=== PATIENT | male | born 1930 | race Caucasian/White ===

== ENCOUNTER 2016-12-08 23:56 | Emergency (ER) | payer MEDICARE, OTHER ==
[2016-12-09] MEDS ORDERED: ONDANSETRON HCL INJ/PF 4 MG/2 ML SDV IV ONE ×2 (00:43→03:07)
[2016-12-09] MEDS ORDERED: LIDOCAINE 2% URO-JET 5 ML KIT MM ONE (00:43)
[2016-12-09] MEDS ORDERED: NORMAL SALINE 1000 ML 1,000 ML IV ONE (03:07)
--- NOTE | 2016-12-09 03:11 | ER Document Report ---
ED General - General Chief Complaint: Nausea/Vomiting Stated Complaint: NAUSEA,VOMITING Time seen by provider: 03:00 Notes: Patient is an 86-year-old male that comes emergency department for chief complaint of vomiting, loss of appetite, and feeling weak. Started today. Grandson states he was so weak he had to be carried to the car. No fevers noted , normal bowel movement with no blood in it, patient has only vomited once but has not eaten or drank all day per family. Patient is on oral chemotherapy for prostate cancer, also on prednisone. Patient has also had a splenectomy. Patient has been exposed to multiple sick family members with vomiting symptoms per family members. Patient has not had the flu vaccine. TRAVEL OUTSIDE OF THE [place] IN LAST 30 DAYS: No - Related Data Allergies/Adverse Reactions: No Known Allergies Allergy (Unverified 07/03/15 19:46) Past Medical History - General Information source: Patient, Relative - Social History Smoking Status: Former Smoker Chew tobacco use (# tins/day): No Frequency of alcohol use: Rare Drug Abuse: None Lives with: Family Family History: Reviewed & Not Pertinent Patient has suicidal ideation: No Patient has homicidal ideation: No Pulmonary Medical History: Reports: Hx COPD Renal/ Medical History: Denies: Hx Peritoneal Dialysis Malignancy Medical History: Reports Hx Prostate Cancer - currently on pill chemo Past Surgical History: Reports: Hx Orthopedic Surgery - KNEE - Immunizations Hx Diphtheria, Pertussis, Tetanus Vaccination: No Review of Systems - Review of Systems Constitutional: See HPI EENT: No symptoms reported Cardiovascular: No symptoms reported Respiratory: No symptoms reported Gastrointestinal: See HPI Genitourinary: No symptoms reported Male Genitourinary: No symptoms reported Musculoskeletal: No symptoms reported Skin: No symptoms reported Hematologic/Lymphatic: No symptoms reported Neurological/Psychological: No symptoms reported Physical Exam - Vital signs Vitals: Temp Pulse Resp BP Pulse Ox 98.3 F 124 H 18 104/63 93 12/09/16 00:03 12/09/16 00:03 12/09/16 00:03 12/09/16 00:03 12/09/16 00:03 Interpretation: Normal - General General appearance: Other - Patient appears tired, eyes are sunken, patient is mumbling responses In distress: None - HEENT Head: Normocephalic, Atraumatic Eyes: Normal Conjunctiva: Normal Extraocular movements intact: Yes Eyelashes: Normal Pupils: PERRL Sinus: Normal Nasal: Normal Mouth/Lips: Normal Mucous membranes: Dry Pharynx: Normal Neck: Normal - Respiratory Respiratory status: No respiratory distress. No: Labored Chest status: Nontender Breath sounds: Decreased air movement. No: Nonproductive cough, Stridor, Wheezing Chest palpation: Normal - Cardiovascular Rhythm: Regular, Tachycardia Heart sounds: Normal auscultation, S1 appreciated, S2 appreciated Murmur: No - Abdominal Inspection: Normal Distension: No distension Bowel sounds: Normal Tenderness: Nontender. No: Tender, Guarding Organomegaly: No organomegaly - Back Back: Normal, Nontender - Extremities General upper extremity: Normal inspection, Nontender, Normal color, Normal ROM , Normal temperature General lower extremity: Normal inspection, Nontender, Normal color, Normal ROM , Normal temperature, Normal weight bearing. No: Orlin's sign - Neurological Neuro grossly intact: Yes Cognition: Normal Orientation: AAOx4 [place] Coma Scale Eye Opening: Spontaneous [place] Coma Scale Verbal: Oriented [place] Coma Scale Motor: Obeys Commands [place] Coma Scale Total: 15 Speech: Normal Motor strength normal: LUE, RUE, LLE, RLE Sensory: Normal - Skin Skin Temperature: Warm Skin Moisture: Dry Skin Color: Normal Course - Re-evaluation Re-evalutation: Patient initially very tired, mumbling, tachycardic, appears generally unwell. Abdomen is not tender to examination. Patient placed on monitor, provided with Zofran and IV fluids, workup obtained. CBC shows mild leukocytosis with no bandemia, no elevation of neutrophils. Chemistries nonspecific, cardiac enzymes negative, EKG with no changes from prior. Urine shows some casts. On reexamination patient had received IV fluids, tachycardia resolved, patient is sitting up, smiling, asking for water. Patient denies any current symptoms. Patient's coloration has improved, his alertness has improved. Patient reevaluated again, continued to drink water, continues to state he feels good, requesting to go home, family is also requesting to go home. Acute abdominal series shows no obstruction, no evidence for pneumonia, no concerning acute abnormalities. Patient is afebrile, workup is nonspecific, patient has had multiple sick contacts at home, as a result patient will be discharged home with recommended close follow-up and strict return precautions. Patient and relatives state understanding and agreement. - Vital Signs Vital signs: Temp Pulse Resp BP Pulse Ox 98.9 F 124 H 19 107/52 L 91 L 12/09/16 06:00 12/09/16 00:03 12/09/16 05:00 12/09/16 05:00 12/09/16 05:00 - Laboratory Result Diagrams: 12/09/16 04:00 12/09/16 04:00 Laboratory results interpreted by me: 12/09/16 12/09/16 12/09/16 04:00 04:00 04:40 WBC 11.5 H RDW 14.4 H Monocytes % 18.5 H Absolute Monocytes 2.1 H Sodium 133.4 L Chloride 94 L BUN 21 H Creatine Kinase 565 H Urine Protein 30 H Urine Blood SMALL H Discharge - Discharge Clinical Impression: Dehydration Nausea & vomiting Qualifiers: Vomiting type: unspecified Vomiting Intractability: non-intractable Qualified Code(s): R11.2 - Nausea with vomiting, unspecified Condition: Stable Disposition: HOME, SELF-CARE Additional Instructions: X-rays and workup did not indicate any acute abnormality. Examination is suggestive of a viral syndrome although other possibilities of exist. Continue rehydration, rest, take Zofran for nausea, follow-up closely with your primary care provider. Return to the emergency department for any concerning worsening symptoms including abdominal pain, uncontrolled vomiting, blood in the vomit or stools, fever, or any other concerning symptoms. Prescriptions: Ondansetron [Zofran Odt 4 mg Tablet] 1 - 2 tab PO Q4H PRN #20 tab.rapdis PRN Reason: For Nausea/Vomiting
[2016-12-09 04:23] LABS: ABSOLUTE BASOPHILS # (AUTO) 0.1 10^3/uL (0.0-0.2); ABSOLUTE LYMPHOCYTES (AUTO) 2.5 10^3/uL (0.5-4.7); ABSOLUTE MONOCYTES (AUTO) 2.1 10^3/uL (0.1-1.4); ABSOLUTE NEUT (AUTO) 6.8 10^3/uL (1.7-8.2); BASOPHILS % (AUTO) 0.6 % (0-2); EOSINOPHILS % (AUTO) 0.4 % (0-6); HEMATOCRIT 44.4 % (37.9-51.0); HEMOGLOBIN 15.1 g/dL (13.5-17.0); HGB HCT DIFFERENCE 0.9; LYMPHOCYTES % (AUTO) 21.5 % (13-45); MEAN CORPUSCULAR HEMOGLOBIN 29.9 pg (27.0-33.4); MEAN CORPUSCULAR HGB CONC 33.9 g/dL (32.0-36.0); MEAN CORPUSCULAR VOLUME 88 fl (80-97); MONOCYTES % (AUTO) 18.5 % (3-13); RED BLOOD COUNT 5.05 10^6/uL (4.35-5.55); RED CELL DISTRIBUTION WIDTH 14.4 % (11.5-14.0); WHITE BLOOD COUNT 11.5 10^3/uL (4.0-10.5)
[2016-12-09 04:38] LABS: ALANINE AMINOTRANSFERASE 24 U/L (21-72); ALBUMIN 4.4 g/dL (3.5-5.0); ALKALINE PHOSPHATASE 90 U/L (38-126); ANION GAP 12 (5-19); ASPARTATE AMINO TRANSFERASE 27 U/L (17-59); BILIRUBIN,TOTAL 1.1 mg/dL (0.2-1.3); BLOOD UREA NITROGEN 21 mg/dL (7-20); CARBON DIOXIDE 27 mmol/L (22-30); CHLORIDE 94 mmol/L (98-107); CREATINE KINASE 565 U/L (55-170); GLUCOSE 91 mg/dL (75-110); POTASSIUM 3.7 mmol/L (3.6-5.0); SODIUM 133.4 mmol/L (137-145); TOTAL PROTEIN 7.4 g/dL (6.3-8.2)
[2016-12-09 04:50] LABS: CREATINE KINASE MB 0.54 ng/mL (<4.55)
[2016-12-09 04:51] LABS: TROPONIN I < 0.012 ng/mL
[2016-12-09 05:28] LABS: APPEARANCE,URINE SLIGHTLY-CLOUDY; BILIRUBIN,URINE NEGATIVE (NEGATIVE); GLUCOSE, URINE NEGATIVE (NEGATIVE); KETONES,URINE NEGATIVE (NEGATIVE); LEUKOCYTE ESTERASE,URINE NEGATIVE (NEGATIVE); NITRITE,URINE NEGATIVE (NEGATIVE); PROTEIN,URINE 30 mg/dL (NEGATIVE); URINE SPECIFIC GRAVITY 1.016; UROBILINOGEN,URINE NEGATIVE mg/dL (<2.0)
[2016-12-09] MEDS ORDERED: NORMAL SALINE 1000 ML 500 ML IV ONE (05:47)
[2016-12-09] MEDS ORDERED: ONDANSETRON ODT 4 MG TAB (6 TAB/DSPK) PO PRN (07:10)
[2016-12-09 07:37] VITALS: BP 112/56
--- NOTE | 2016-12-09 18:09 | EKG REPORT ---
SEVERITY:- BORDERLINE ECG - SINUS RHYTHM PROBABLE LEFT ATRIAL ABNORMALITY MARKEDLY POSTERIOR QRS AXIS LOW VOLTAGE IN FRONTAL LEADS : Confirmed by: Radha Cloey MD 09-Dec-2016 18:07:15
== END 2016-12-09 07:36 | disposition home or self-care (01) ==
LOC: ER 23:56
DX: E86.0 Dehydration (principal); R11.2 Nausea with vomiting, unspecified; R53.1 Weakness; C61 Malignant neoplasm of prostate; Z79.899 Other long term (current) drug therapy; J44.9 Chronic obstructive pulmonary disease, unspecified
CPT/HCPCS: 93005; 99284; 96361; 51701; 96374; 36415; 82553; 82550; 85025; 80053; 81001; 84484; 74022; 93010; J2405; J7030; A9270; J3490

== ENCOUNTER 2017-01-26 11:42 | Inpatient (IN) | payer MEDICARE, OTHER ==
[2017-01-26] MEDS ORDERED: TETANUS/DIPHTHERIA TOX-ADULT 0.5 ML SYR (>=7YO) IM ONE (12:14)
[2017-01-26] MEDS ORDERED: CEFAZOLIN 2 GM/D5W RTU 50 ML IV SCH (12:15)
[2017-01-26 12:17] LABS: ABSOLUTE BASOPHILS # (AUTO) 0.2 10^3/uL (0.0-0.2); ABSOLUTE LYMPHOCYTES (AUTO) 2.8 10^3/uL (0.5-4.7); ABSOLUTE MONOCYTES (AUTO) 3.4 10^3/uL (0.1-1.4); ABSOLUTE NEUT (AUTO) 11.2 10^3/uL (1.7-8.2); BASOPHILS % (AUTO) 1.2 % (0-2); EOSINOPHILS % (AUTO) 0.1 % (0-6); HEMATOCRIT 42.7 % (37.9-51.0); HEMOGLOBIN 14.6 g/dL (13.5-17.0); HGB HCT DIFFERENCE 1.1; LYMPHOCYTES % (AUTO) 15.8 % (13-45); MEAN CORPUSCULAR HEMOGLOBIN 29.6 pg (27.0-33.4); MEAN CORPUSCULAR HGB CONC 34.3 g/dL (32.0-36.0); MEAN CORPUSCULAR VOLUME 87 fl (80-97); MONOCYTES % (AUTO) 19.5 % (3-13); RED BLOOD COUNT 4.94 10^6/uL (4.35-5.55); RED CELL DISTRIBUTION WIDTH 15.1 % (11.5-14.0); SEGMENTED NEUTROPHILS % (AUTO) 63.4 % (42-78); WHITE BLOOD COUNT 17.7 10^3/uL (4.0-10.5)
[2017-01-26 12:20] LABS: PARTIAL THROMBOPLASTIN TIME 26.5 SEC (23.5-35.8)
--- NOTE | 2017-01-26 12:24 | ER Document Report ---
ED Neuro Symptoms/Deficit - General Mode of Arrival: Medic Information source: Relative TRAVEL OUTSIDE OF THE [place] IN LAST 30 DAYS: No - HPI Duration: Continues in ED Severity: Severe Recently seen / treated by doctor: Yes <WESTLEY PRIETO - Last Filed: 01/26/17 12:27> <AMAN DOCKERY - Last Filed: 01/26/17 14:32> - General Chief Complaint: S/S of Possible Stroke Stated Complaint: FALL/ALTERED Notes: Patient is an 86-year-old male that presents to the emergency department today for complaints of stroke-like symptoms which began at some today point between 0730 and arrival here. The patient lives with his son. Son at bedside states that this morning when he left for work at 0730 the patient was seemingly normal. Son states he returned home around 1030 to 1045 today and found the patient lying on the ground, unable to get up, and confused. Grandson at bedside also states the patient was slumped to his left and would not follow commands. Family states that the patient was seen in this facility approximately one month ago after feeling weak, confused, and delirious and he was found to be dehydrated. Family states the patient responded to IV fluids and was released. Family deny the patient complaining of any nausea, vomiting, diarrhea, fevers, chest pain, or any weakness prior to this episode. (WESTLEY PRIETO) - Related Data Allergies/Adverse Reactions: No Known Allergies Allergy (Unverified 07/03/15 19:46) Past Medical History - General Information source: Patient - Social History Smoking Status: Current Every Day Smoker Cigarette use (# per day): Yes Frequency of alcohol use: Rare Drug Abuse: None Lives with: Family Family History: Reviewed & Not Pertinent Patient has suicidal ideation: No Patient has homicidal ideation: No - Past Medical History Cardiac Medical History: Reports: Hx Hypercholesterolemia Pulmonary Medical History: Reports: Hx COPD Endocrine Medical History: Reports: Hx Diabetes Mellitus Type 2 Malignancy Medical History: Reports Hx Prostate Cancer - currently on pill chemo Past Surgical History: Reports: Hx Orthopedic Surgery - left tib/fib hardware - Immunizations Hx Diphtheria, Pertussis, Tetanus Vaccination: No <WESTLEY PRIETO - Last Filed: 01/26/17 12:27> Review of Systems - Review of Systems -: Yes ROS unobtainable due to patient's medical condition - confused <WESTLEY PRIETO - Last Filed: 01/26/17 12:27> Physical Exam <WESTLEY PRIETO - Last Filed: 01/26/17 12:27> <AMAN DOCKERY - Last Filed: 01/26/17 14:32> - Vital signs Vitals: Resp 23 H 01/26/17 11:56 - Notes Notes: Physical Exam: General: Confused HEENT: Normocephalic. Atraumatic. PERRL. Extraocular movements intact. Oropharynx clear. Neck: Supple. Non-tender. Respiratory: No respiratory distress. Clear and equal breath sounds bilaterally. Cardiovascular: Regular rate and rhythm. Abdominal: No distension. Normal Bowel Sounds. Back: Non-tender. No deformity or step off. Extremities Upper extremities: Skin tear to left anterior forearm Lower extremities: Redness and slight swelling over left shoulder. Area over left lateral proximal tib/fib where subcutaneous tissue is exposed, possible bone protrusion. Neurological: Not following commands, confused. Nonsensical sentences. Left upper extremity and left lower extremity weakness. Unable to hold left arm up against gravity. Normal pedal reflexes bilaterally. Able to wiggle toes bilaterally. No slurred speech. No obvious visual disturbances. No obvious facial droop. Psychological: unable to assess Skin: multiple skin tears, see extremity exam. (IDAWESTLEY IZAGUIRRE) Course - Laboratory Result Diagrams: 01/26/17 12:05 01/26/17 12:05 <WESTLEY PRIETO - Last Filed: 01/26/17 12:27> - Laboratory Result Diagrams: 01/26/17 12:05 01/26/17 12:05 <AMAN DOCKERY - Last Filed: 01/26/17 14:32> - Re-evaluation Re-evalutation: 01/26/17 14:23 Patient presents with confusion and left-sided weakness after being found on the floor by his son about an hour prior to arrival. The patient reportedly was last seen normal around 7:30 this morning. The patient reportedly had an episode of confusion about a month ago and was diagnosed with dehydration and after a couple of bags of IV fluids he reportedly returned to normal. However at that time he had no weakness. On exam, patient is alert but very confused and nonsensical sentences. The patient has weakness in the left upper and left lower extremity. He is unable to follow commands. He has skin tears and a laceration in the left lateral leg. He has tenderness to palpation of the proximal fibula. Medical decision making: Patient with likely acute stroke he is outside of the window for thrombolytics and given the obvious left-sided trauma I would be concerned for increased risk of bleed. The patient does appear to be less confused after some fluids here in the emergency department. He is answering questions more appropriately and now following commands. Patient admitted to the [facility] by Dr. Haney, hospitalist. I will need to suture repair the laceration in the left lower leg prior to him going up to her room. 01/26/17 14:31 (AMAN DOCKERY) - Vital Signs Vital signs: Temp Pulse Resp BP Pulse Ox 122 H 15 125/76 96 01/26/17 12:15 01/26/17 14:01 01/26/17 14:01 01/26/17 14:01 - Laboratory Laboratory results interpreted by me: 01/26/17 01/26/17 01/26/17 12:05 12:05 12:05 WBC 17.7 H RDW 15.1 H Monocytes % 19.5 H Absolute Neutrophils 11.2 H Absolute Monocytes 3.4 H Sodium 136.7 L Chloride 95 L Glucose 116 H Calcium 10.3 H Alkaline Phosphatase 151 H Creatine Kinase 825 H CK-MB (CK-2) 5.30 H - EKG Interpretation by Me Additional EKG results interpreted by me: 01/26/17 14:23 Heart rate 117, sinus tachycardia, right axis deviation, no ST elevations or depressions, as interpreted by me. No old for comparison. (AMAN DOCKERY) Discharge <WESTLEY PRIETO - Last Filed: 01/26/17 12:27> - Discharge Admitting Provider: Hospitalist Unit Admitted: [facility] <AMAN DOCKERY - Last Filed: 01/26/17 14:32> - Discharge Clinical Impression: Confusion, Left-sided weakness, Multiple lacerations Condition: Fair Disposition: ADMITTED INPATIENT Scribe Attestation: 01/26/17 13:27 I personally performed the services described in the documentation, reviewed and edited the documentation which was dictated to the scribe in my presence, and it accurately records my words and actions. (JEANA DOCKERY Scribe Documentation - Scribe Written by Scribe:: Twyla Holland, 01/26/2017 1254 acting as scribe for :: Mcqueen <WESTLEY PRIETO - Last Filed: 01/26/17 12:27>
[2017-01-26 12:32] LABS: ALANINE AMINOTRANSFERASE 27 U/L (21-72); ALBUMIN 4.6 g/dL (3.5-5.0); ALKALINE PHOSPHATASE 151 U/L (38-126); ANION GAP 16 (5-19); ASPARTATE AMINO TRANSFERASE 43 U/L (17-59); BILIRUBIN,DIRECT 0.4 mg/dL (0.0-0.4); BILIRUBIN,TOTAL 0.9 mg/dL (0.2-1.3); BLOOD UREA NITROGEN 20 mg/dL (7-20); CALCIUM 10.3 mg/dL (8.4-10.2); CARBON DIOXIDE 26 mmol/L (22-30); CHLORIDE 95 mmol/L (98-107); CREATINE KINASE 825 U/L (55-170); CREATININE RESULT 0.74 mg/dL (0.52-1.25); GLUCOSE 116 mg/dL (75-110); POTASSIUM 4.7 mmol/L (3.6-5.0); SODIUM 136.7 mmol/L (137-145); TOTAL PROTEIN 8.1 g/dL (6.3-8.2)
[2017-01-26 12:44] LABS: CREATINE KINASE MB 5.3 ng/mL (<4.55); TROPONIN I 0.027 ng/mL
[2017-01-26] MEDS ORDERED: LIDOCAINE 1%/EPINEPHRINE INJ 20 ML VIAL INJ ONE (13:14)
[2017-01-26] MEDS ORDERED: DEXTROSE 40% GEL 15 GM TUBE PO PRN ×2 (14:30)
[2017-01-26] MEDS ORDERED: NORMAL SALINE 1000 ML 1,000 ML IV PRN (14:30)
[2017-01-26] MEDS ORDERED: GLUCAGON,HUMAN RECOMB 1 MG INJ SUBCUT PRN (14:30)
[2017-01-26] MEDS ORDERED: DEXTROSE 50%-WATER 25 GM/50 ML DISP.SYRIN IV PRN ×2 (14:30)
[2017-01-26] MEDS ORDERED: ENOXAPARIN SODIUM INJ 40 MG/0.4 ML DISP.SYRIN SUBCUT ONE (15:30)
--- NOTE | 2017-01-26 17:33 | ER Document Report ---
Doctor's Note Notes: 01/26/17 17:30 Procedure: Laceration repair of left proximal lower leg laceration. Wound cleaned with Shur-Clens. Irrigated well. 1% lidocaine with epi used for local anesthesia. Wounds edges are gaping approximately 15 mm x 1 cm square wound. The patient's skin is very thin. 3 edges of this wound have completely denuded skin however the area under the laceration reveals the muscular fascia. The wound was explored no further penetration was identified beyond the subcutaneous tissue. Wound edges were brought together with 5-0 Vicryl absorbable suture. 4 sutures were placed with the first suture being a horizontal mattress and remaining sutures simple sutures. Wound came together well. Dressing applied by nurse to remainder of wound which was a very large 10 cm x 5 cm area of denuded skin extending proximally.
[2017-01-26] MEDS ORDERED: VANCOMYCIN HCL 0 MG in DEXTROSE 5%-WATER 250 ML IV NR (18:00)
--- NOTE | 2017-01-26 18:01 | PDOC H&P ---
History of Present Illness Admission Date/PCP: 01/26/17 14:30 Dr Everett Patient complains of: weakness left side body. Confusion. Status post fall History of Present Illness: THERESA HIGGINS is a 86 year old male with a known history of COPD, anemia, nephrolithiasis, prostatic cancer with metastases Presents to the ED after falling with confusion and left-sided weakness Patient was found on the floor at home He was extremely confused on arrival and then slowly his mentation improved He had left upper extremity left lower extremity weakness that also improved somewhat He was found not to be a candidate for TPA He was febrile in the emergency room with a fever of 102, tachycardia and a blood pressure 100/60 Sepsis workup was initiated; He was treated with IV fluid, broad-spectrum coverage and subsequently admitted [place] [facility] [place] workup was initiated Past Medical History Cardiac Medical History: Reports: Hyperlipidema, Hypertension Pulmonary Medical History: Reports: Chronic Obstructive Pulmonary Disease (COPD) Endocrine Medical History: Reports: Diabetes Mellitus Type 2 Renal/ Medical History: Reports: Nephrolithiasis - Anemia Malignancy Medical History: Reports: Other - Ca of the prostate with metastases Hematology: Reports: Anemia Past Surgical History Past Surgical History: Reports: Orthopedic Surgery - left tib/fib hardware Social History Lives with: Family - Grandson was also his surrogate healthcare Smoking Status: Former Smoker Frequency of Alcohol Use: Occasional Hx Recreational Drug Use: No Drugs: None Hx Prescription Drug Abuse: No - Advance Directive Resuscitation Status: Full Code Surrogate healthcare decision maker:: Grandson Sánchez Family History Family History: Reviewed & Not Pertinent Parental Family History Reviewed: Yes Children Family History Reviewed: Yes Sibling(s) Family History Reviewed.: Yes Medication/Allergy Home Medications: Abiraterone Acetate [Zytiga 250 mg Tablet] 1,000 mg PO DAILY 01/26/17 Atorvastatin Calcium [Lipitor 40 mg Tablet] 40 mg PO QHS 01/26/17 Calcium Carbonate/Vitamin D3 [Calcium 500-Vit D3 200 Tablet] 1 tab PO Q12 Cyproheptadine HCl [Periactin 4 mg Tablet] 4 mg PO Q12 01/26/17 Levothyroxine Sodium [Synthroid 0.025 mg Tablet] 25 mcg PO DAILY 01/26/17 Metformin HCl [Glucophage] 500 mg PO BID 01/26/17 Pantoprazole Sodium [Protonix] 40 mg PO DAILY 01/26/17 Prednisone [Deltasone 5 mg Tablet] 5 mg PO BID 01/26/17 Allergies/Adverse Reactions: No Known Allergies Allergy (Unverified 07/03/15 19:46) Review of Systems ROS unobtainable: Due to mental status Physical Exam Vital Signs: Temp Pulse Resp BP Pulse Ox 102.8 F H 101 H 24 H 125/76 95 01/26/17 17:16 01/26/17 17:16 01/26/17 14:31 01/26/17 14:31 01/26/17 14:31 Intake & Output 01/25/17 01/26/17 01/27/17 00:59 00:59 00:59 Weight 125 kg General appearance: PRESENT: no acute distress, thin, other - Does look chronically ill Head exam: PRESENT: atraumatic, normocephalic Eye exam: PRESENT: conjunctiva pink, EOMI, PERRLA. ABSENT: scleral icterus Neck exam: ABSENT: carotid bruit, JVD, lymphadenopathy, thyromegaly Respiratory exam: PRESENT: clear to auscultation shell. ABSENT: rales, rhonchi, wheezes Cardiovascular exam: PRESENT: RRR, systolic murmur, tachycardia. ABSENT: clicks , gallop, rubs Pulses: PRESENT: normal dorsalis pedis pul Vascular exam: PRESENT: normal capillary refill GI/Abdominal exam: PRESENT: normal bowel sounds, soft. ABSENT: distended, guarding, mass, organolmegaly, rebound, tenderness Rectal exam: PRESENT: deferred Extremities exam: PRESENT: full ROM. ABSENT: calf tenderness, clubbing, pedal edema Neurological exam: PRESENT: awake, other - Weakness left upper left lower extremity Skin exam: PRESENT: other - Abrasions and superficial lacerations left arm and left leg Results Laboratory Results: Labs- All tests 24 hr 01/26/17 01/26/17 01/26/17 11:54 12:05 12:05 WBC 17.7 H RBC 4.94 Hgb 14.6 Hct 42.7 MCV 87 MCH 29.6 MCHC 34.3 RDW 15.1 H Plt Count 438 Seg Neutrophils % 63.4 Lymphocytes % 15.8 Monocytes % 19.5 H Eosinophils % 0.1 Basophils % 1.2 Absolute Neutrophils 11.2 H Absolute Lymphocytes 2.8 Absolute Monocytes 3.4 H Absolute Eosinophils 0.0 Absolute Basophils 0.2 PT 12.0 INR 0.87 APTT 26.5 Sodium Potassium Chloride Carbon Dioxide Anion Gap BUN Creatinine Est GFR ( Amer) Est GFR (Non-Af Amer) Glucose POC Glucose 102 Calcium Total Bilirubin Direct Bilirubin Indirect Bilirubin Neonat Total Bilirubin AST ALT Alkaline Phosphatase Creatine Kinase CK-MB (CK-2) Troponin I Total Protein Albumin 01/26/17 01/26/17 12:05 12:05 WBC RBC Hgb Hct MCV MCH MCHC RDW Plt Count Seg Neutrophils % Lymphocytes % Monocytes % Eosinophils % Basophils % Absolute Neutrophils Absolute Lymphocytes Absolute Monocytes Absolute Eosinophils Absolute Basophils PT INR APTT Sodium 136.7 L Potassium 4.7 Chloride 95 L Carbon Dioxide 26 Anion Gap 16 BUN 20 Creatinine 0.74 Est GFR ( Amer) > 60 Est GFR (Non-Af Amer) > 60 Glucose 116 H POC Glucose Calcium 10.3 H Total Bilirubin 0.9 Direct Bilirubin 0.4 Indirect Bilirubin Not Reportable Neonat Total Bilirubin Not Reportable AST 43 ALT 27 Alkaline Phosphatase 151 H Creatine Kinase 825 H CK-MB (CK-2) 5.30 H Troponin I 0.027 Total Protein 8.1 Albumin 4.6 EKG Comments: SINUS TACHYCARDIA [PLAA] . PROBABLE LEFT ATRIAL ABNORMALITY [RAD] . RIGHT AXIS DEVIATION [IMIQ] . INFERIOR INFARCT, AGE INDETERMINATE [AMI8] . CONSIDER ANTEROSEPTAL INFARCT Impressions: Chest X-Ray 01/26/17 11:46 IMPRESSION: NO ACUTE RADIOGRAPHIC FINDING IN THE CHEST. Head CT 01/26/17 11:46 IMPRESSION: CHRONIC CHANGES OF ATROPHY AND MICROVASCULAR ISCHEMIA. NO ACUTE PROCESS. Forearm X-Ray 01/26/17 11:59 IMPRESSION: NEGATIVE STUDY OF THE LEFT FOREARM. NO RADIOGRAPHIC EVIDENCE OF ACUTE INJURY. Tibia/Fibula X-Ray 01/26/17 11:59 IMPRESSION: NEGATIVE STUDY OF THE LEFT TIBIA AND FIBULA. NO RADIOGRAPHIC EVIDENCE OF ACUTE INJURY. Shoulder X-Ray 01/26/17 12:12 IMPRESSION: NEGATIVE STUDY OF THE LEFT SHOULDER. NO RADIOGRAPHIC EVIDENCE OF ACUTE INJURY. Carotid Doppler Study 01/26/17 14:35 IMPRESSION: NO HEMODYNAMICALLY SIGNIFICANT STENOSIS. Assessment & Plan - Diagnosis (1) Sepsis Qualifiers: Sepsis type: sepsis due to unspecified organism Qualified Code(s): A41.9 - Sepsis, unspecified organism Is this a current diagnosis for this admission?: YesPlan: Source is unclear Chest x-ray is normal We will place a Oliveros catheter sending urine analysis and urine culture Patient does have a history of prostatic CA ; source is likely UTI We will schedule the patient for a plain CT abdomen and pelvis in a.m. to exclude post obstructive nephropathy (2) Urinary incontinence Qualifiers: Urinary Incontinence type: unspecified incontinence Qualified Code(s ): R32 - Unspecified urinary incontinence Is this a current diagnosis for this admission?: YesPlan: Oliveros catheter will be inserted (3) Confusion Is this a current diagnosis for this admission?: YesPlan: Metabolic encephalopathy secondary to sepsis and or CVA Initial CT of the brain was normal (4) Left-sided weakness Is this a current diagnosis for this admission?: YesPlan: Maybe secondary to metabolic encephalopathy and or CVA Reevaluate MEND exams Stroke workup initiated (5) Falls Is this a current diagnosis for this admission?: YesPlan: we will monitor Patient may have had a syncope Fall was not witnessed patient was found on the ground PT evaluation when stable - Time Time Spent: Greater than 70 Minutes - Inpatient Certification Based on my medical assessment, after consideration of the patient's comorbidities, presenting symptoms, or acuity I expect that the services needed warrant INPATIENT care.: Yes I certify that my determination is in accordance with my understanding of Medicare's requirements for reasonable and necessary INPATIENT services [42 CFR 412.3e].: Yes Medical Necessity: Need For IV Fluids, Need For Continuous Telemetry Monitoring , Need for IV Antibiotics
[2017-01-26] MEDS: ACETAMINOPHEN 325 MG TABLET PO PRN (18:46)
[2017-01-26] MEDS ORDERED: PIPERACILLIN SODIUM/TAZOBACTAM 3.375 GM in NORMAL SALINE 100 ML IV ONE (19:00)
[2017-01-26] MEDS: NORMAL SALINE 1000 ML 2,000 ML IV PRN (19:12)
--- NOTE | 2017-01-26 19:56 | EKG REPORT ---
SEVERITY:- ABNORMAL ECG - SINUS TACHYCARDIA PROBABLE LEFT ATRIAL ABNORMALITY RIGHT AXIS DEVIATION INFERIOR INFARCT, AGE INDETERMINATE CONSIDER ANTEROSEPTAL INFARCT : Confirmed by: Jl Cast MD 26-Jan-2017 19:54:46
[2017-01-26] MEDS: ATORVASTATIN CALCIUM 40 MG TABLET PO SCH (23:03)
[2017-01-27] MEDS ORDERED: PIPERACILLIN SODIUM/TAZOBACTAM 3.375 GM in NORMAL SALINE 100 ML IV SCH ×2
[2017-01-27] MEDS: CEFTRIAXONE 2 GM/D5W RTU 50 ML IV SCH ×3 (00:02→21:33)
[2017-01-27] MEDS: VANCOMYCIN HCL 1,500 MG in DEXTROSE 5%-WATER 250 ML IV SCH ×3 (01:11→21:33)
[2017-01-27] MEDS: ACETAMINOPHEN 325 MG TABLET PO PRN (03:09)
[2017-01-27 06:08] LABS: CHOLESTEROL 159.23 mg/dL (0-200); Direct HDL 43 mg/dL (>40); TRIGLYCERIDES 225 mg/dL (<150)
[2017-01-27 06:21] LABS: DIRECT LDL 55 mg/dL (<100)
--- NOTE | 2017-01-27 07:41 | EKG REPORT ---
SEVERITY:- ABNORMAL ECG - SINUS RHYTHM MULTIPLE ATRIAL PREMATURE COMPLEXES RIGHT AXIS DEVIATION INFERIOR INFARCT, AGE INDETERMINATE : Confirmed by: Jl Cast MD 27-Jan-2017 07:39:55
[2017-01-27] MEDS: ENOXAPARIN SODIUM INJ 40 MG/0.4 ML DISP.SYRIN SUBCUT SCH (10:49)
[2017-01-27] MEDS: ASPIRIN 325 MG TABLET, ENT COATED PO SCH (10:50)
--- NOTE | 2017-01-27 10:52 | PDOC PROGRESS REPORT ---
Subjective Progress Note for:: 01/27/17 Subjective:: Patient still looks quite ill His left-sided weakness has improved He is still confused at times but recognizes his family He has no headache no photophobia no neck pain Fever has resolved Lactic acid yesterday was normal Patient did have residual urine close to 300 mL; the Oliveros catheter will be inserted if he does not void in the next 30 minutes Physical Exam Vital Signs: Temp Pulse Resp BP Pulse Ox 98.2 F 92 16 111/54 L 98 01/27/17 07:51 01/27/17 07:51 01/27/17 07:51 01/27/17 07:51 01/27/17 07:51 Intake & Output 01/26/17 01/27/17 01/28/17 00:59 00:59 00:59 Intake Total 825 Balance 825 Weight 125 kg 57.4 kg General appearance: PRESENT: no acute distress, thin - Looks acute on chronically ill Is very thin, other Head exam: PRESENT: atraumatic, normocephalic Eye exam: PRESENT: conjunctiva pink, EOMI, PERRLA. ABSENT: scleral icterus Mouth exam: PRESENT: dry mucosa, tongue midline Neck exam: ABSENT: carotid bruit, JVD, lymphadenopathy, thyromegaly Respiratory exam: PRESENT: clear to auscultation shell. ABSENT: rales, rhonchi, wheezes Cardiovascular exam: PRESENT: RRR. ABSENT: diastolic murmur, rubs, systolic murmur Vascular exam: PRESENT: normal capillary refill GI/Abdominal exam: PRESENT: normal bowel sounds, soft. ABSENT: distended, guarding, mass, organolmegaly, rebound, tenderness Neurological exam: PRESENT: CN II-XII grossly intact - Patient is moving all 4 extremities No facial paralysis Results Laboratory Results: 01/26/17 01/27/17 19:50 05:40 Lactic Acid 1.2 Triglycerides 225 H Cholesterol 159.23 LDL Cholesterol Direct 55 VLDL Cholesterol 45.0 H HDL Cholesterol 43 01/26/17 01/27/17 18:00 00:18 Troponin I 0.045 0.044 Impressions: Chest X-Ray 01/26/17 11:46 IMPRESSION: NO ACUTE RADIOGRAPHIC FINDING IN THE CHEST. Head CT 01/26/17 11:46 IMPRESSION: CHRONIC CHANGES OF ATROPHY AND MICROVASCULAR ISCHEMIA. NO ACUTE PROCESS. Forearm X-Ray 01/26/17 11:59 IMPRESSION: NEGATIVE STUDY OF THE LEFT FOREARM. NO RADIOGRAPHIC EVIDENCE OF ACUTE INJURY. Tibia/Fibula X-Ray 01/26/17 11:59 IMPRESSION: NEGATIVE STUDY OF THE LEFT TIBIA AND FIBULA. NO RADIOGRAPHIC EVIDENCE OF ACUTE INJURY. Shoulder X-Ray 01/26/17 12:12 IMPRESSION: NEGATIVE STUDY OF THE LEFT SHOULDER. NO RADIOGRAPHIC EVIDENCE OF ACUTE INJURY. Head MRI 01/26/17 14:30 IMPRESSION: ATROPHY AND CHRONIC MICRO-VASCULAR ISCHEMIC CHANGES. OTHERWISE NORMAL MRI OF THE BRAIN WITHOUT INTRAVENOUS GADOLINIUM CONTRAST. Carotid Doppler Study 01/26/17 14:35 IMPRESSION: NO HEMODYNAMICALLY SIGNIFICANT STENOSIS. Assessment & Plan - Diagnosis (1) Sepsis Qualifiers: Sepsis type: sepsis due to unspecified organism Qualified Code(s): A41.9 - Sepsis, unspecified organism Is this a current diagnosis for this admission?: YesPlan: Early sepsis Lactic acid was normal the patient was febrile with altered mental status Fever has resolved Source of the sepsis is unclear It is unlikely that the patient has meningitis or meningoencephalitis as his mentation has improved the left sided hemiparesis has improved Patient couldn't stand with physical therapy we will continue vancomycin and ceftriaxone at this time Source of the sepsis is more likely to be urinary tract infection; patient appears to be in urinary retention; he does have a history of prostatic cancer We will continue the present antibiotic management Patient appears somewhat dehydrated clinically We will increase IV fluids and give him a fluid bolus (2) Urinary incontinence Qualifiers: Urinary Incontinence type: unspecified incontinence Qualified Code(s ): R32 - Unspecified urinary incontinence Is this a current diagnosis for this admission?: Yes (3) Confusion Is this a current diagnosis for this admission?: Yes (4) Left-sided weakness Is this a current diagnosis for this admission?: YesPlan: Resolved (5) Falls Is this a current diagnosis for this admission?: Yes (6) History of prostate cancer Is this a current diagnosis for this admission?: YesPlan: We will hold chemotherapy at this time (7) TIA (transient ischemic attack) Is this a current diagnosis for this admission?: YesPlan: Likely The patient has a normal carotid ultrasound; negative initial CT of the head Echocardiogram was performed - Time Time Spent with patient: We will continue the present management Hydrate Reevaluate Time Spent with patient: 35 or more minutes
[2017-01-27 11:07] LABS: ABSOLUTE BASOPHILS # (AUTO) 0.1 10^3/uL (0.0-0.2); ABSOLUTE LYMPHOCYTES (AUTO) 2.1 10^3/uL (0.5-4.7); ABSOLUTE MONOCYTES (AUTO) 1.8 10^3/uL (0.1-1.4); ABSOLUTE NEUT (AUTO) 9.4 10^3/uL (1.7-8.2); BASOPHILS % (AUTO) 0.9 % (0-2); EOSINOPHILS % (AUTO) 0.3 % (0-6); HEMATOCRIT 40.7 % (37.9-51.0); HEMOGLOBIN 14.1 g/dL (13.5-17.0); HGB HCT DIFFERENCE 1.6; LYMPHOCYTES % (AUTO) 15.6 % (13-45); MEAN CORPUSCULAR HEMOGLOBIN 29.9 pg (27.0-33.4); MEAN CORPUSCULAR HGB CONC 34.6 g/dL (32.0-36.0); MEAN CORPUSCULAR VOLUME 86 fl (80-97); MONOCYTES % (AUTO) 13.2 % (3-13); RED BLOOD COUNT 4.72 10^6/uL (4.35-5.55); WHITE BLOOD COUNT 13.5 10^3/uL (4.0-10.5)
[2017-01-27 11:17] LABS: ANION GAP 12 (5-19); BLOOD UREA NITROGEN 14 mg/dL (7-20); CALCIUM 8.8 mg/dL (8.4-10.2); CARBON DIOXIDE 24 mmol/L (22-30); CHLORIDE 99 mmol/L (98-107); CREATININE RESULT 0.62 mg/dL (0.52-1.25); GLUCOSE 93 mg/dL (75-110)
[2017-01-27 11:20] LABS: POTASSIUM 3.7 mmol/L (3.6-5.0)
[2017-01-27] MEDS ORDERED: PREDNISONE 10 MG TABLET PO ONE (11:30)
[2017-01-27 12:56] LABS: APPEARANCE,URINE CLOUDY; BILIRUBIN,URINE NEGATIVE (NEGATIVE); GLUCOSE, URINE NEGATIVE (NEGATIVE); KETONES,URINE TRACE mg/dL (NEGATIVE); LEUKOCYTE ESTERASE,URINE NEGATIVE (NEGATIVE); NITRITE,URINE NEGATIVE (NEGATIVE); PROTEIN,URINE 30 mg/dL (NEGATIVE); URINE SPECIFIC GRAVITY 1.017; UROBILINOGEN,URINE NEGATIVE mg/dL (<2.0)
--- NOTE | 2017-01-27 15:57 | XCELERA REPORT ---
[address] [address] Transthoracic Echocardiogram Report Name: THERESA HIGGINS Age: 86 yrs Gender: Male : 1930 Patient Status: Inpatient Patient Location: \S\09\S\A Study Date: 01/26/2017 03:40 PM Height: 65 in Weight: 140 lb BSA: 1.7 m2 Procedure: A two-dimensional transthoracic echocardiogram with color flow and Doppler was performed. Study Quality: Technically suboptimal. Reason For Study: CVA History: CVA. Ordering Physician: NITZA COONEY Performed By: Nevin Cordova Interpretation Summary There is no obvious cardiac source of embolus noted on this transthoracic echocardiogram. Follow-up with a ARPITA is suggested if cardiac source is still suspected. The left ventricle is normal in size. There is normal left ventricular wall thickness. LV EF is > than 60% Left ventricular systolic function is normal. Doppler measurements suggest impaired left ventricular relaxation, which is associated with grade I/IV or mild diastolic dysfunction The left ventricular wall motion is normal. There is no thrombus. The right ventricle is not well visualized secondary to technical limitations The left atrial size is normal. There is no evidence of mitral valve prolapse. There is no mitral valve stenosis. There is a trace amount of mitral regurgitation The aortic valve is trileaflet. There is no aortic valvular vegetation. There is mild to moderate aortic stenosis There is a peak gradient of 41 mm of Hg. There is no LVOT obstruction. No aortic regurgitation is present. There is no tricuspid stenosis. There is a trace to mild amount of tricuspid regurgitation There is mild pulmonary hypertension by echo RVSP is 322 to 37 mm of Hg , with RA mean of 5 to 10. There is no pericardial effusion. There is no obvious cardiac source of embolus noted on this transthoracic echocardiogram. Follow-up with a ARPITA is suggested if cardiac source is still suspected MMode/2D Measurements \T\ Calculations RVDd: 3.2 cm LVIDd: 4.6 cm FS: 33.1 % Ao root diam: 3.0 cm IVSd: 0.81 cm LVIDs: 3.1 cm EDV(Teich): 98.6 ml LVPWd: 0.67 cmESV(Teich): 37.8 ml Ao root area: 6.8 cm2 EF(Teich): 61.7 % LA dimension: 3.2 cm LVOT diam: 2.1 cm LVOT area: 3.4 cm2 Doppler Measurements \T\ Calculations MV E max jeni: MV P1/2t max jeni: Ao V2 max: LV V1 max P.3 cm/sec 56.8 cm/sec 320.3 cm/sec 3.1 mmHg MV A max jeni: MV P1/2t: 63.0 msec Ao max PG: LV V1 mean P.0 cm/sec MVA(P1/2t): 3.5 cm2 41.0 mmHg 1.7 mmHg MV E/A: 0.49 MV dec slope: Ao V2 mean: LV V1 max: 264.0 cm/sec2 224.8 cm/sec 87.9 cm/sec Ao mean PG: LV V1 mean: 22.9 mmHg 61.0 cm/sec Ao V2 VTI: 49.9 cmLV V1 VTI: KYMBERLY(I,D): 0.77 cm211.4 cm KYMBERLY(V,D): 0.92 cm2 SV(LVOT): 38.5 ml PA V2 max: TR max jeni: 106.6 cm/sec 260.6 cm/sec PA max P.5 mmHg TR max P.2 mmHg Left Ventricle The left ventricle is normal in size. There is normal left ventricular wall thickness. LV EF is > than 60%. Left ventricular systolic function is normal. Doppler measurements suggest impaired left ventricular relaxation, which is associated with grade I/IV or mild diastolic dysfunction. The left ventricular wall motion is normal. There is no thrombus. Right Ventricle The right ventricle is not well visualized secondary to technical limitations. Atria The right atrium is normal. The left atrial size is normal. Mitral Valve There is mild to moderate mitral annular calcification. There is no evidence of mitral valve prolapse. There is no vegetation seen on the mitral valve. There is no mitral valve stenosis. There is a trace amount of mitral regurgitation. Aortic Valve The aortic valve is trileaflet. There is no aortic valvular vegetation. There is mild to moderate aortic stenosis. There is a peak gradient of 41 mm of Hg. There is no LVOT obstruction. No aortic regurgitation is present. Tricuspid Valve There is no tricuspid stenosis. There is a trace to mild amount of tricuspid regurgitation. There is mild pulmonary hypertension by echo. RVSP is 322 to 37 mm of Hg , with RA mean of 5 to 10. Pulmonic Valve The pulmonic valve is not well visualized. Great Vessels The aortic root is not well visualized but is probably normal size. Effusions There is no pericardial effusion. : NITZA COONEY > Radha Coley
[2017-01-27] MEDS ORDERED: PREDNISONE 5 MG TABLET PO SCH (18:00)
[2017-01-27] MEDS: PREDNISONE 10 MG TABLET PO SCH (18:25)
[2017-01-27] MEDS: NORMAL SALINE 1000 ML 2,000 ML IV PRN (18:26)
[2017-01-27] MEDS: ATORVASTATIN CALCIUM 40 MG TABLET PO SCH (21:33)
[2017-01-28] MEDS: ENOXAPARIN SODIUM INJ 40 MG/0.4 ML DISP.SYRIN SUBCUT SCH (08:27)
[2017-01-28] MEDS: CEFTRIAXONE 2 GM/D5W RTU 50 ML IV SCH (10:20)
[2017-01-28] MEDS: LEVOTHYROXINE SODIUM 0.025 MG TABLET PO SCH (10:21)
[2017-01-28] MEDS: ASPIRIN 325 MG TABLET, ENT COATED PO SCH (10:21)
[2017-01-28] MEDS: LANSOPRAZOLE 30 MG TAB.RAP.DR PO SCH (10:21)
[2017-01-28] MEDS: PREDNISONE 10 MG TABLET PO SCH ×2 (10:21→17:26)
--- NOTE | 2017-01-28 14:01 | PDOC PROGRESS REPORT ---
Subjective Progress Note for:: 01/28/17 Subjective:: Patient is doing a lot better His mentation has improved He has been waking with physical therapy and ambulates with a walker He is had no fever no chills left-sided hemiplegia has resolved Physical Exam Vital Signs: Temp Pulse Resp BP Pulse Ox 98.1 F 76 17 129/47 H 97 01/28/17 07:21 01/28/17 07:21 01/28/17 07:21 01/28/17 07:21 01/28/17 07:21 Intake & Output 01/27/17 01/28/17 01/29/17 00:59 00:59 00:59 Intake Total 3867 1400 Output Total 1200 200 Balance 2667 1200 Weight 125 kg 57.4 kg 56.1 kg General appearance: PRESENT: no acute distress, other - Still looks chronically ill Head exam: PRESENT: atraumatic, normocephalic Eye exam: PRESENT: conjunctiva pink, EOMI, PERRLA. ABSENT: scleral icterus Neck exam: ABSENT: carotid bruit, JVD, lymphadenopathy, thyromegaly Respiratory exam: PRESENT: clear to auscultation shell. ABSENT: rales, rhonchi, wheezes Cardiovascular exam: PRESENT: RRR. ABSENT: diastolic murmur, rubs, systolic murmur Pulses: PRESENT: normal dorsalis pedis pul GI/Abdominal exam: PRESENT: normal bowel sounds, soft. ABSENT: distended, guarding, mass, organolmegaly, rebound, tenderness Extremities exam: PRESENT: full ROM. ABSENT: calf tenderness, clubbing, pedal edema Neurological exam: PRESENT: awake, CN II-XII grossly intact Skin exam: PRESENT: dry, intact, warm. ABSENT: cyanosis, rash Results Laboratory Results: 01/27/17 10:47 01/28/17 09:56 01/28/17 09:56 Creatinine 0.50 L Est GFR ( Amer) > 60 Est GFR (Non-Af Amer) > 60 01/26/17 01/27/17 18:00 00:18 Troponin I 0.045 0.044 Impressions: Chest X-Ray 01/26/17 11:46 IMPRESSION: NO ACUTE RADIOGRAPHIC FINDING IN THE CHEST. Forearm X-Ray 01/26/17 11:59 IMPRESSION: NEGATIVE STUDY OF THE LEFT FOREARM. NO RADIOGRAPHIC EVIDENCE OF ACUTE INJURY. Tibia/Fibula X-Ray 01/26/17 11:59 IMPRESSION: NEGATIVE STUDY OF THE LEFT TIBIA AND FIBULA. NO RADIOGRAPHIC EVIDENCE OF ACUTE INJURY. Shoulder X-Ray 01/26/17 12:12 IMPRESSION: NEGATIVE STUDY OF THE LEFT SHOULDER. NO RADIOGRAPHIC EVIDENCE OF ACUTE INJURY. Head MRI 01/26/17 14:30 IMPRESSION: ATROPHY AND CHRONIC MICRO-VASCULAR ISCHEMIC CHANGES. OTHERWISE NORMAL MRI OF THE BRAIN WITHOUT INTRAVENOUS GADOLINIUM CONTRAST. Carotid Doppler Study 01/26/17 14:35 IMPRESSION: NO HEMODYNAMICALLY SIGNIFICANT STENOSIS. Renal Ultrasound 01/27/17 10:53 IMPRESSION: NO EVIDENCE OF HYDRONEPHROSIS. CORTICAL CYST IN THE RIGHT KIDNEY. Head CT 01/28/17 08:00 IMPRESSION: Chronic white matter disease. 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 No acute findings Assessment & Plan - Diagnosis (1) Sepsis Qualifiers: Sepsis type: sepsis due to unspecified organism Qualified Code(s): A41.9 - Sepsis, unspecified organism Is this a current diagnosis for this admission?: YesPlan: Likely to be secondary to urinary tract infection has resolved Week we will continue ceftriaxone IV and discharged patient with Keflex by mouth (2) Urinary incontinence Qualifiers: Urinary Incontinence type: unspecified incontinence Qualified Code(s ): R32 - Unspecified urinary incontinence Is this a current diagnosis for this admission?: YesPlan: Patient had a residual of 400 mL of urine yesterday Initiated Flomax We'll discontinue Oliveros catheter in a.m. and half patient attempt to void (3) Confusion Is this a current diagnosis for this admission?: YesPlan: Encephalopathy likely to be secondary to TIA and/or sepsis is resolving (4) Left-sided weakness Is this a current diagnosis for this admission?: YesPlan: Secondary to TIA has resolved (5) Falls Is this a current diagnosis for this admission?: Yes (6) History of prostate cancer Is this a current diagnosis for this admission?: Yes (7) TIA (transient ischemic attack) Qualifiers: Transient cerebral ischemia type: unspecified Qualified Code(s): G45.9 - Transient cerebral ischemic attack, unspecified Is this a current diagnosis for this admission?: YesPlan: MRI was unremarkable and carotid ultrasound did not show significant stenosis (8) Urinary retention Is this a current diagnosis for this admission?: Yes - Time Time Spent with patient: We will discharge patient in a.m. if stable
[2017-01-28] MEDS ORDERED: PREDNISONE 10 MG TABLET PO ONE (14:30)
[2017-01-28] MEDS ORDERED: TAMSULOSIN HCL 0.4 MG CAP.SR.24H PO SCH (18:00)
[2017-01-28] MEDS: ATORVASTATIN CALCIUM 40 MG TABLET PO SCH (21:16)
[2017-01-28] MEDS: NORMAL SALINE 1000 ML 1,000 ML IV PRN (22:01)
[2017-01-29] MEDS ORDERED: POTASSI CL 20 MEQ/50 ML RIDER 20 MEQ/50 ML RTUPB IV ONE (00:48)
[2017-01-29] MEDS: POTASSI CL 20 MEQ/50 ML RIDER 20 MEQ/50 ML RTUPB IV SCH ×2 (00:55→02:52)
[2017-01-29 01:09] LABS: ANION GAP 13 (5-19); BLOOD UREA NITROGEN 16 mg/dL (7-20); CARBON DIOXIDE 20 mmol/L (22-30); CHLORIDE 104 mmol/L (98-107); CREATININE RESULT 0.58 mg/dL (0.52-1.25); GLUCOSE 203 mg/dL (75-110); MAGNESIUM 2.1 mg/dL (1.6-2.3); POTASSIUM 3.8 mmol/L (3.6-5.0); SODIUM 136.5 mmol/L (137-145)
[2017-01-29] MEDS ORDERED: CALCIUM GLUCONATE 1,000 MG in DEXTROSE 5%-WATER 50 ML IV ONE (03:27)
[2017-01-29] MEDS ORDERED: CALCIUM GLUCONATE 1000 MG/10 ML INJ IV ONE (03:49)
[2017-01-29] MEDS: NORMAL SALINE 1000 ML 1,000 ML IV PRN (06:39)
[2017-01-29 07:10] LABS: HEMATOCRIT 30.8 % (37.9-51.0); HGB HCT DIFFERENCE 1.6; MEAN CORPUSCULAR HEMOGLOBIN 30.1 pg (27.0-33.4); MEAN CORPUSCULAR HGB CONC 35.2 g/dL (32.0-36.0); MEAN CORPUSCULAR VOLUME 86 fl (80-97); WHITE BLOOD COUNT 6.6 10^3/uL (4.0-10.5)
[2017-01-29 07:29] LABS: HEMOGLOBIN 10.8 g/dL (13.5-17.0)
[2017-01-29 07:33] LABS: ALANINE AMINOTRANSFERASE 33 U/L (21-72); ALBUMIN 2.6 g/dL (3.5-5.0); ALKALINE PHOSPHATASE 69 U/L (38-126); ANION GAP 8 (5-19); ASPARTATE AMINO TRANSFERASE 48 U/L (17-59); BILIRUBIN,DIRECT 0.3 mg/dL (0.0-0.4); BILIRUBIN,TOTAL 0.5 mg/dL (0.2-1.3); BLOOD UREA NITROGEN 16 mg/dL (7-20); CALCIUM 8.3 mg/dL (8.4-10.2); CARBON DIOXIDE 23 mmol/L (22-30); CHLORIDE 105 mmol/L (98-107); GLUCOSE 126 mg/dL (75-110); POTASSIUM 4.2 mmol/L (3.6-5.0); SODIUM 136.3 mmol/L (137-145); TOTAL PROTEIN 5.3 g/dL (6.3-8.2)
[2017-01-29 07:36] LABS: BASOPHILS % (MANUAL) 0 % (0-2); EOSINOPHILS % (MANUAL) 0 % (0-6); LYMPHOCYTES % (MANUAL) 21 % (13-45); TOTAL CELLS COUNTED 100
[2017-01-29 07:38] LABS: POIKILOCYTOSIS 2+
[2017-01-29 07:39] LABS: ANISOCYTOSIS SLIGHT; BURR CELLS 1+; HELMET CELLS SLIGHT; OVALOCYTES SLIGHT
[2017-01-29 07:42] VITALS: BP 99/44
[2017-01-29] MEDS: LEVOTHYROXINE SODIUM 0.025 MG TABLET PO SCH (09:03)
[2017-01-29] MEDS: LANSOPRAZOLE 30 MG TAB.RAP.DR PO SCH (09:03)
[2017-01-29] MEDS: PREDNISONE 10 MG TABLET PO SCH (09:03)
--- NOTE | 2017-01-29 09:14 | EKG REPORT ---
SEVERITY:- ABNORMAL ECG - SINUS BRADYCARDIA LOW VOLTAGE IN FRONTAL LEADS NONSPECIFIC T ABNORMALITIES, INFERIOR LEADS CONSIDER OLD ANTEROSEPTAL IL : Confirmed by: Jl Cast MD 29-Jan-2017 09:13:31
--- NOTE | 2017-01-29 09:29 | PDOC TRANSFER SUMMARY ---
General Admission Date/PCP: 01/26/17 14:30 Dr Everett Admission Date: 01/26/17 Transfer Date: 01/29/17 Accepting Facility: [facility] Accepting Physician: Dr Hawley Resuscitation Status: Full Code - Transfer Diagnosis (1) Urinary incontinence Is this a current diagnosis for this admission?: Yes (2) Falls Is this a current diagnosis for this admission?: Yes (3) History of prostate cancer Is this a current diagnosis for this admission?: Yes (4) TIA (transient ischemic attack) Is this a current diagnosis for this admission?: Yes (5) Urinary retention Is this a current diagnosis for this admission?: Yes (6) Bradycardia Is this a current diagnosis for this admission?: Yes - Transfer Medications Home Medications: Abiraterone Acetate [Zytiga 250 mg Tablet] 1,000 mg PO DAILY 01/26/17 Atorvastatin Calcium [Lipitor 40 mg Tablet] 40 mg PO QHS 01/26/17 Calcium Carbonate/Vitamin D3 [Calcium 500-Vit D3 200 Tablet] 1 tab PO Q12 Cyproheptadine HCl [Periactin 4 mg Tablet] 4 mg PO Q12 01/26/17 Levothyroxine Sodium [Synthroid 0.025 mg Tablet] 25 mcg PO DAILY 01/26/17 Metformin HCl [Glucophage] 500 mg PO BID 01/26/17 Pantoprazole Sodium [Protonix] 40 mg PO DAILY 01/26/17 Prednisone [Deltasone 5 mg Tablet] 5 mg PO BID 01/26/17 Transfer Medications: Current Medications Acetaminophen (Tylenol 325 Mg Tablet) 650 mg PO Q4HP PRN PRN Reason: PAIN/FEVER Stop: 02/25/17 18:06 Last Admin: 01/27/17 03:09 Dose: 650 mg Aspirin (Ecotrin 325 Mg Ec Tablet) 325 mg PO DAILY RADU Stop: 02/26/17 09:59 Last Admin: 01/28/17 10:21 Dose: 325 mg Atorvastatin Calcium (Lipitor 40 Mg Tablet) 40 mg PO QHS RADU Stop: 02/25/17 21:59 Last Admin: 01/28/17 21:16 Dose: 40 mg Dextrose (Dextrose Inj 50% Syringe (25 Gm/50 Ml)) 12.5 gm IV PRN PRN; Protocol PRN Reason: FOR BG 50-69 IN ALERT PATIENT Stop: 02/25/17 14:29 Dextrose (Dextrose Inj 50% Syringe (25 Gm/50 Ml)) 25 gm IV PRN PRN; Protocol PRN Reason: See Label Comments Stop: 02/25/17 14:29 Enoxaparin Sodium (Lovenox Inj 40 Mg/0.4 Ml Disp.Syrin) 40 mg SUBCUT QAM RADU Stop: 02/26/17 07:59 Last Admin: 01/28/17 08:27 Dose: 40 mg Glucagon (Glucagen Inj 1 Mg Vial) 1 mg SUBCUT PRN PRN; Protocol PRN Reason: Evaluate for BG < 70 Stop: 02/25/17 14:29 Glucose (Glutose 40% Gel 15 Gm Tube) 15 gm PO PRN PRN; Protocol PRN Reason: For BG 50-69 in Alert Patient Stop: 02/25/17 14:29 Glucose (Glutose 40% Gel 15 Gm Tube) 30 gm PO PRN PRN; Protocol PRN Reason: FOR BG < 50 IN ALERT PATIENT Stop: 02/25/17 14:29 Sodium Chloride (Nacl 0.9% 1000 Ml Iv Soln) 1,000 mls @ 250 mls/hr IV CONTINUOUS PRN PRN Reason: THIS MED IS NOT "PRN" Stop: 02/26/17 10:51 Last Admin: 01/29/17 06:39 Dose: 1,000 ml Ceftriaxone Sodium/Dextrose (Rocephin Rtu 1 Gm/D5w 50 Ml Premix) 50 mls @ 100 mls/hr IV DAILY RADU Stop: 02/05/17 09:59 Lansoprazole (Prevacid 30 Mg Odt Tablet) 30 mg PO DAILY RADU Stop: 02/27/17 09:59 Last Admin: 01/29/17 09:03 Dose: 30 mg Levothyroxine Sodium (Synthroid 0.025 Mg Tablet) 0.025 mg PO DAILY RADU Stop: 02/27/17 09:59 Last Admin: 01/29/17 09:03 Dose: 0.025 mg Prednisone (Deltasone 10 Mg Tablet) 20 mg PO BID RADU Stop: 02/27/17 17:59 Last Admin: 01/29/17 09:03 Dose: 20 mg Sodium Chloride (Saline Flush 2.5 Ml Monoject Prefil Syrin) 2.5 ml IV Q8 RADU Stop: 02/25/17 21:59 Last Admin: 01/29/17 05:05 Dose: 2.5 ml Tamsulosin HCl (Flomax 0.4 Mg Cap.Sr) 0.4 mg PO PCSUPPER RADU Stop: 02/27/17 17:59 Last Admin: 01/28/17 17:26 Dose: 0.4 mg - Allergies Allergies/Adverse Reactions: No Known Allergies Allergy (Unverified 07/03/15 19:46) Hospital Course Hospital Course: with a known history of COPD, anemia, nephrolithiasis, prostatic cancer with metastases Presents to the ED after falling with confusion and left-sided weakness Patient was found on the floor at home He was extremely confused on arrival and then slowly his mentation improved He had left upper extremity left lower extremity weakness that also improved somewhat He was found not to be a candidate for TPA He was febrile in the emergency room with a fever of 102, tachycardia and a blood pressure 100/60 Sepsis workup was initiated; He was treated with IV fluid, broad-spectrum coverage and subsequently admitted to the hospital[place] [facility] Stroke workup was initiated 1 bradycardia Patient was found on the monitor to have a heart rate in the 30s; this is a sinus bradycardia without pauses Blood pressure is 90/50 And patient is asymptomatic while supine Patient did have a syncope preceding the admission and TIA like symptoms- confusion and left sided hemiparesis which resolved after a few hours Workup for CVA included CT of the head; MRI head; carotid ultrasound There was no evidence of an acute CVA Syncope and TIA are likely secondary to bradycardia Patient is a candidate for pacemaker 2 UTI ; urinary retention On admission patient had a fever of 102, leukocytosis Lactic acid was normal He did have about 450 mL residual urine in the bladder Oliveros catheter was inserted Patient was treated with ceftriaxone IV All cultures so far are negative; but the urine culture was obtained after first dose of ceftriaxone Patient should be treated empirically for UTI for total of 7 days 3 prostatic CA Chemotherapy was held during this hospitalization 4 hypothyroidism Synthroid was continued TSH is normal 5 mild/moderate aortic stenosis was described on echocardiogram Physical Exam Vital Signs: Temp Pulse Resp BP Pulse Ox 97.5 F 36 L 17 99/44 L 99 01/29/17 07:29 01/29/17 07:29 01/29/17 07:29 01/29/17 07:29 01/29/17 07:29 Intake & Output 01/28/17 01/29/17 01/30/17 00:59 00:59 00:59 Intake Total 3867 2530 1010 Output Total 1200 1800 450 Balance 2667 730 560 Weight 57.4 kg 56.1 kg 56.7 kg General appearance: PRESENT: no acute distress, thin Head exam: PRESENT: atraumatic, normocephalic Eye exam: PRESENT: conjunctiva pink, EOMI, PERRLA. ABSENT: scleral icterus Neck exam: ABSENT: carotid bruit, JVD, lymphadenopathy, thyromegaly Respiratory exam: PRESENT: clear to auscultation shell. ABSENT: rales, rhonchi, wheezes Cardiovascular exam: PRESENT: bradycardia, RRR - He, systolic murmur. ABSENT: gallop Pulses: PRESENT: normal dorsalis pedis pul GI/Abdominal exam: PRESENT: normal bowel sounds, soft. ABSENT: distended, guarding, mass, organolmegaly, rebound, tenderness Extremities exam: PRESENT: full ROM. ABSENT: calf tenderness, clubbing, pedal edema Neurological exam: PRESENT: alert, awake, oriented to person, oriented to place , oriented to time, oriented to situation, CN II-XII grossly intact. ABSENT: motor sensory deficit Skin exam: PRESENT: dry, intact, warm. ABSENT: cyanosis, rash Results Laboratory Results: 01/29/17 06:47 01/29/17 06:47 01/28/17 01/29/17 01/29/17 09:56 00:49 06:47 WBC 6.6 RBC 3.60 L Hgb 10.8 L D Hct 30.8 L MCV 86 MCH 30.1 MCHC 35.2 RDW 15.0 H Plt Count 286 Seg Neutrophils % Not Reportable Lymphocytes % Not Reportable Monocytes % Not Reportable Eosinophils % Not Reportable Basophils % Not Reportable Absolute Neutrophils Not Reportable Absolute Lymphocytes Not Reportable Absolute Monocytes Not Reportable Absolute Eosinophils Not Reportable Absolute Basophils Not Reportable Sodium 136.5 L Potassium 3.8 Chloride 104 Carbon Dioxide 20 L Anion Gap 13 BUN 16 Creatinine 0.50 L 0.58 Est GFR ( Amer) > 60 > 60 Est GFR (Non-Af Amer) > 60 > 60 Glucose 203 H Calcium 8.0 L Magnesium 2.1 Total Bilirubin AST ALT Alkaline Phosphatase Total Protein Albumin 01/29/17 06:47 WBC RBC Hgb Hct MCV MCH MCHC RDW Plt Count Seg Neutrophils % Lymphocytes % Monocytes % Eosinophils % Basophils % Absolute Neutrophils Absolute Lymphocytes Absolute Monocytes Absolute Eosinophils Absolute Basophils Sodium 136.3 L Potassium 4.2 Chloride 105 Carbon Dioxide 23 Anion Gap 8 BUN 16 Creatinine 0.60 Est GFR ( Amer) > 60 Est GFR (Non-Af Amer) > 60 Glucose 126 H Calcium 8.3 L Magnesium Total Bilirubin 0.5 AST 48 ALT 33 Alkaline Phosphatase 69 Total Protein 5.3 L Albumin 2.6 L 01/26/17 01/27/17 18:00 00:18 Troponin I 0.045 0.044 Labs- Last Values WBC 6.6 10^3/uL (4.0-10.5) 01/29/17 06:47 RBC 3.60 10^6/uL (4.35-5.55) L 01/29/17 06:47 Hgb 10.8 g/dL (13.5-17.0) L D 01/29/17 06:47 Hct 30.8 % (37.9-51.0) L 01/29/17 06:47 MCV 86 fl (80-97) 01/29/17 06:47 MCH 30.1 pg (27.0-33.4) 01/29/17 06:47 MCHC 35.2 g/dL (32.0-36.0) 01/29/17 06:47 RDW 15.0 % (11.5-14.0) H 01/29/17 06:47 Plt Count 286 10^3/uL (150-450) 01/29/17 06:47 Total Counted 100 01/29/17 06:47 Seg Neutrophils % Not Reportable 01/29/17 06:47 Seg Neuts % (Manual) 64 % (42-78) 01/29/17 06:47 Lymphocytes % Not Reportable 01/29/17 06:47 Lymphocytes % (Manual) 21 % (13-45) 01/29/17 06:47 Monocytes % Not Reportable 01/29/17 06:47 Monocytes % (Manual) 15 % (3-13) H 01/29/17 06:47 Eosinophils % Not Reportable 01/29/17 06:47 Eosinophils % (Manual) 0 % (0-6) 01/29/17 06:47 Basophils % Not Reportable 01/29/17 06:47 Basophils % (Manual) 0 % (0-2) 01/29/17 06:47 Absolute Neutrophils Not Reportable 01/29/17 06:47 Abs Neuts (Manual) 4.2 10^3/uL (1.7-8.2) 01/29/17 06:47 Absolute Lymphocytes Not Reportable 01/29/17 06:47 Abs Lymphs (Manual) 1.4 10^3/uL (0.5-4.7) 01/29/17 06:47 Absolute Monocytes Not Reportable 01/29/17 06:47 Abs Monocytes (Manual) 1.0 10^3/uL (0.1-1.4) 01/29/17 06:47 Absolute Eosinophils Not Reportable 01/29/17 06:47 Absolute Eos (Manual) 0.0 10^3/uL (0.0-0.6) 01/29/17 06:47 Absolute Basophils Not Reportable 01/29/17 06:47 Abs Basophils (Manual) 0.0 10^3/uL (0.0-0.2) 01/29/17 06:47 Platelet Comment ADEQUATE 01/29/17 06:47 Poikilocytosis 2+ 01/29/17 06:47 Anisocytosis SLIGHT 01/29/17 06:47 Ovalocytes SLIGHT 01/29/17 06:47 Helmet Cells SLIGHT 01/29/17 06:47 [place] Cells 1+ 01/29/17 06:47 PT 12.0 SEC (11.4-15.4) 01/26/17 12:05 INR 0.87 01/26/17 12:05 APTT 26.5 SEC (23.5-35.8) 01/26/17 12:05 Sodium 136.3 mmol/L (137-145) L 01/29/17 06:47 Potassium 4.2 mmol/L (3.6-5.0) 01/29/17 06:47 Chloride 105 mmol/L (98-107) 01/29/17 06:47 Carbon Dioxide 23 mmol/L (22-30) 01/29/17 06:47 Anion Gap 8 (5-19) 01/29/17 06:47 BUN 16 mg/dL (7-20) 01/29/17 06:47 Creatinine 0.60 mg/dL (0.52-1.25) 01/29/17 06:47 Est GFR ( Amer) > 60 (>60) 01/29/17 06:47 Est GFR (Non-Af Amer) > 60 (>60) 01/29/17 06:47 Glucose 126 mg/dL (75-110) H 01/29/17 06:47 POC Glucose 102 mg/dL (70-110) 01/26/17 11:54 Hemoglobin A1c % 5.4 % (4.7-6.0) 01/27/17 05:40 Lactic Acid 1.2 mmol/L (0.7-2.1) 01/26/17 19:50 Calcium 8.3 mg/dL (8.4-10.2) L 01/29/17 06:47 Magnesium 2.1 mg/dL (1.6-2.3) 01/29/17 00:49 Total Bilirubin 0.5 mg/dL (0.2-1.3) 01/29/17 06:47 Direct Bilirubin 0.3 mg/dL (0.0-0.4) 01/29/17 06:47 Indirect Bilirubin Not Reportable 01/29/17 06:47 Neonat Total Bilirubin Not Reportable 01/29/17 06:47 AST 48 U/L (17-59) 01/29/17 06:47 ALT 33 U/L (21-72) 01/29/17 06:47 Alkaline Phosphatase 69 U/L (38-126) 01/29/17 06:47 Creatine Kinase 825 U/L (55-170) H 01/26/17 12:05 CK-MB (CK-2) 5.30 ng/mL (<4.55) H 01/26/17 12:05 Troponin I 0.044 ng/mL 01/27/17 00:18 Total Protein 5.3 g/dL (6.3-8.2) L 01/29/17 06:47 Albumin 2.6 g/dL (3.5-5.0) L 01/29/17 06:47 Triglycerides 225 mg/dL (<150) H 01/27/17 05:40 Cholesterol 159.23 mg/dL (0-200) 01/27/17 05:40 LDL Cholesterol Direct 55 mg/dL (<100) 01/27/17 05:40 VLDL Cholesterol 45.0 mg/dL (10-31) H 01/27/17 05:40 HDL Cholesterol 43 mg/dL (>40) 01/27/17 05:40 TSH 4.41 uIU/mL (0.47-4.68) 01/27/17 10:47 Urine Color YELLOW 01/27/17 12:35 Urine Appearance CLOUDY 01/27/17 12:35 Urine pH 5.0 (5.0-9.0) 01/27/17 12:35 Ur Specific [place] 1.017 01/27/17 12:35 Urine Protein 30 mg/dL (NEGATIVE) H 01/27/17 12:35 Urine Glucose (UA) NEGATIVE mg/dL (NEGATIVE) 01/27/17 12:35 Urine Ketones TRACE mg/dL (NEGATIVE) H 01/27/17 12:35 Urine Blood LARGE (NEGATIVE) H 01/27/17 12:35 Urine Nitrite NEGATIVE (NEGATIVE) 01/27/17 12:35 Urine Bilirubin NEGATIVE (NEGATIVE) 01/27/17 12:35 Urine Urobilinogen NEGATIVE mg/dL (<2.0) 01/27/17 12:35 Ur Leukocyte Esterase NEGATIVE (NEGATIVE) 01/27/17 12:35 Urine WBC (Auto) 2 /HPF 01/27/17 12:35 Urine RBC (Auto) 18 /HPF 01/27/17 12:35 Urine Mucus (Auto) RARE /LPF 01/27/17 12:35 Urine Ascorbic Acid NEGATIVE (NEGATIVE) 01/27/17 12:35 Time Trough Drawn 0956 01/28/17 09:56 Vancomycin Trough 17.9 ug/mL (5.0-20.0) 01/28/17 09:56 01/27/17 12:35 Urine Culture - Preliminary Catheterized Urine NO GROWTH IN 1 DAY 01/26/17 19:50 Blood Culture - Preliminary Blood NO GROWTH AFTER 48 HOURS 01/26/17 18:40 Blood Culture - Preliminary Blood NO GROWTH AFTER 48 HOURS EKG Comments: SINUS BRADYCARDIA [LVOLF] . LOW VOLTAGE IN FRONTAL LEADS [T1IN] . NONSPECIFIC T ABNORMALITIES, INFERIOR LEADS - STMT - * CONSIDER OLD ANTEROSEPTAL IL [id number] THERESA HIGGINS 29-Jan-2017 03:10:55 : 1930 87 Years Male Race: White Dept: Inpatients Room: [facility] Oper: LAR HR 38 ND 172 QRSD 98 QT 536 QTc 427 -- AXIS -- P 30 QRS -51 T 4 Requested By: ASUNCION PRABHAKAR Reason: EKG changes Order Impressions: Chest X-Ray 01/26/17 11:46 IMPRESSION: NO ACUTE RADIOGRAPHIC FINDING IN THE CHEST. Forearm X-Ray 01/26/17 11:59 IMPRESSION: NEGATIVE STUDY OF THE LEFT FOREARM. NO RADIOGRAPHIC EVIDENCE OF ACUTE INJURY. Tibia/Fibula X-Ray 01/26/17 11:59 IMPRESSION: NEGATIVE STUDY OF THE LEFT TIBIA AND FIBULA. NO RADIOGRAPHIC EVIDENCE OF ACUTE INJURY. Shoulder X-Ray 01/26/17 12:12 IMPRESSION: NEGATIVE STUDY OF THE LEFT SHOULDER. NO RADIOGRAPHIC EVIDENCE OF ACUTE INJURY. Head MRI 01/26/17 14:30 IMPRESSION: ATROPHY AND CHRONIC MICRO-VASCULAR ISCHEMIC CHANGES. OTHERWISE NORMAL MRI OF THE BRAIN WITHOUT INTRAVENOUS GADOLINIUM CONTRAST. Carotid Doppler Study 01/26/17 14:35 IMPRESSION: NO HEMODYNAMICALLY SIGNIFICANT STENOSIS. Renal Ultrasound 01/27/17 10:53 IMPRESSION: NO EVIDENCE OF HYDRONEPHROSIS. CORTICAL CYST IN THE RIGHT KIDNEY. Head CT 01/28/17 08:00 IMPRESSION: Chronic white matter disease. 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 No acute findings Plan Discharge Plan: Transfer to [facility] Dr Hawley Time Spent: Greater than 30 Minutes
[2017-01-29] MEDS: ASPIRIN 325 MG TABLET, ENT COATED PO SCH (09:30)
[2017-01-29] MEDS: ENOXAPARIN SODIUM INJ 40 MG/0.4 ML DISP.SYRIN SUBCUT SCH (09:30)
[2017-01-29] MEDS ORDERED: CEFTRIAXONE 1 GM/D5W RTU 50 ML IV SCH (10:00)
== END 2017-01-29 10:35 | disposition short-term general hospital (02) | DRG 988 ==
LOC: ER 11:42 → EH 14:07 → UNDOADMIN 14:07 → EH 14:30 → 3W 17:13
PROVIDERS: ADMIT Family Medicine; ATTEND Family Medicine
PROC: 0JQP0ZZ Repair Left Lower Leg Subcutaneous Tissue and Fascia, Open Approach (ICD-10-PCS; principal; 2017-01-26)
DX: G45.9 Transient cerebral ischemic attack, unspecified (principal); N39.0 Urinary tract infection, site not specified; C79.9 Secondary malignant neoplasm of unspecified site; R00.1 Bradycardia, unspecified; R53.1 Weakness; F17.210 Nicotine dependence, cigarettes, uncomplicated; E78.00 Pure hypercholesterolemia, unspecified; R33.9 Retention of urine, unspecified; E03.9 Hypothyroidism, unspecified; E11.9 Type 2 diabetes mellitus without complications; J44.9 Chronic obstructive pulmonary disease, unspecified; C61 Malignant neoplasm of prostate; D64.9 Anemia, unspecified; I10 Essential (primary) hypertension; Z79.899 Other long term (current) drug therapy; S81.812A Laceration without foreign body, left lower leg, initial encounter; S51.812A Laceration without foreign body of left forearm, initial encounter; Z87.442 Personal history of urinary calculi; Z79.84 Long term (current) use of oral hypoglycemic drugs; W19.XXXA Unspecified fall, initial encounter
CPT/HCPCS: 36415; 70450; 70551; 71010; 76775; 80048; 80053; 80061; 80202; 81001; 82550; 82553; 82565; 82962; 83036; 83605; 83735; 84443; 84484; 85025; 85610; 85730; 87040; 87086; 90471; 90714; 93005; 93010; 93306; 93880; 99285; G8978-GP; G8979-GP; J0610; J0696; J1650; J2543; J3370; J3480; J3490; J7030; J7060; J7512

== ENCOUNTER 2017-08-03 00:34 | Emergency (ER) | payer MEDICARE, OTHER ==
[2017-08-03 02:49] LABS: HEMATOCRIT 38.2 % (37.9-51.0); HGB HCT DIFFERENCE 0.8; MEAN CORPUSCULAR HEMOGLOBIN 30.1 pg (27.0-33.4); MEAN CORPUSCULAR HGB CONC 34.1 g/dL (32.0-36.0); MEAN CORPUSCULAR VOLUME 88 fl (80-97); RED BLOOD COUNT 4.32 10^6/uL (4.35-5.55); RED CELL DISTRIBUTION WIDTH 15.2 % (11.5-14.0); WHITE BLOOD COUNT 23.9 10^3/uL (4.0-10.5)
[2017-08-03 02:59] LABS: ALANINE AMINOTRANSFERASE 27 U/L (21-72); ALKALINE PHOSPHATASE 162 U/L (38-126); ANION GAP 15 (5-19); ASPARTATE AMINO TRANSFERASE 28 U/L (17-59); BILIRUBIN,DIRECT 0.6 mg/dL (0.0-0.4); BILIRUBIN,TOTAL 0.8 mg/dL (0.2-1.3); BLOOD UREA NITROGEN 24 mg/dL (7-20); CALCIUM 10.3 mg/dL (8.4-10.2); CARBON DIOXIDE 18 mmol/L (22-30); CHLORIDE 105 mmol/L (98-107); CREATININE RESULT 0.83 mg/dL (0.52-1.25); GLUCOSE 122 mg/dL (75-110); POTASSIUM 4.8 mmol/L (3.6-5.0); SODIUM 138.1 mmol/L (137-145); TOTAL PROTEIN 6.9 g/dL (6.3-8.2)
[2017-08-03 03:04] LABS: ALCOHOL < 10 mg/dL (NONE DETECTED)
[2017-08-03 03:06] LABS: MAGNESIUM 1.2 mg/dL (1.6-2.3)
[2017-08-03] MEDS ORDERED: ONDANSETRON HCL INJ/PF 4 MG/2 ML SDV IV ONE (03:09)
[2017-08-03] MEDS ORDERED: ACETAMINOPHEN SUSP 160 MG/5 ML ORAL SYRING PO ONE (03:09)
[2017-08-03] MEDS ORDERED: NORMAL SALINE 1000 ML 1,000 ML IV ONE ×3 (03:10→06:07)
[2017-08-03 03:13] LABS: BAND NEUTROPHILS % (MANUAL) 8 % (3-5); BASOPHILS % (MANUAL) 0 % (0-2); EOSINOPHILS % (MANUAL) 0 % (0-6); LYMPHOCYTES % (MANUAL) 11 % (13-45); TOTAL CELLS COUNTED 100
[2017-08-03 03:14] LABS: ANISOCYTOSIS 1+; BURR CELLS 1+; POIKILOCYTOSIS 1+; TOXIC GRANULATION 1+; TOXIC VACUOLATION PRESENT
[2017-08-03] MEDS: MAGNESIUM SULFATE/D5W 1 GM/100 ML RTUPB IV SCH ×2 (03:32→03:51)
--- NOTE | 2017-08-03 04:21 | ER Document Report ---
ED General - General Chief Complaint: Weakness Stated Complaint: LEG INJURY Time Seen by Provider: 08/03/17 02:43 Mode of Arrival: Ambulatory Information source: Patient, Relative TRAVEL OUTSIDE OF THE [place] IN LAST 30 DAYS: No - HPI Notes: Patient is a 87-year-old white male with history of metastatic prostate cancer and previous UTI and sepsis presents the emergency department with his grandson with report of dehydration with altered mental state. Patient was found to have a temperature rectally on arrival of 100.9 and initially had a good blood pressure. The Patient came in with family by private vehicle, and while being placed in the car he scraped the back of his right leg on the floor board of the car sustaining a skin tear. There was no fall nor head injury, and the patient denies any chest pain or cough, but he does report some abdominal pain. After the patient's temperature came down from Tylenol, his blood pressure also came down. - Related Data Allergies/Adverse Reactions: No Known Allergies Allergy (Unverified 07/03/15 19:46) Past Medical History - General Information source: Patient, Relative - Social History Smoking Status: Former Smoker Frequency of alcohol use: None Drug Abuse: None Lives with: Family Family History: Reviewed & Not Pertinent Patient has suicidal ideation: No Patient has homicidal ideation: No - Past Medical History Cardiac Medical History: Reports: Hx Hypercholesterolemia, Hx Hypertension Pulmonary Medical History: Reports: Hx COPD Endocrine Medical History: Reports: Hx Diabetes Mellitus Type 2 Renal/ Medical History: Denies: Hx Peritoneal Dialysis Malignancy Medical History: Reports Hx Prostate Cancer - currently on pill chemo Past Surgical History: Reports: Hx Orthopedic Surgery - left tib/fib hardware - Immunizations Hx Diphtheria, Pertussis, Tetanus Vaccination: No Review of Systems - Review of Systems Notes: REVIEW OF SYSTEMS: CONSTITUTIONAL : Mild recent weight loss. EENT: Denies eye, ear, throat, or mouth pain or symptoms. Denies nasal or sinus congestion or discharge. Denies throat, tongue, or mouth swelling or difficulty swallowing. CARDIOVASCULAR: Denies chest pain. Denies palpitations or racing or irregular heart beat. Denies ankle edema. RESPIRATORY: Denies cough, cold, or chest congestion. Denies shortness of breath, difficulty breathing, or wheezing. GASTROINTESTINAL: Denies abdominal distention. Denies nausea, vomiting, or diarrhea. Denies blood in vomitus, stools, or per rectum. Denies black, tarry stools. Denies constipation. GENITOURINARY: Patient is incontinent of urine which is unusual for him. MUSCULOSKELETAL: Denies back or neck pain or stiffness. Denies joint pain or swelling. SKIN: Denies rash. older skin tear left lower extremity with numerous skin tears From this evening right lower extremity. HEMATOLOGIC : Denies easy bruising or bleeding. LYMPHATIC: Denies swollen, enlarged glands. NEUROLOGICAL: Denies passing out or loss of consciousness. Denies dizziness or lightheadedness. Denies headache. Denies weakness or paralysis or loss of use of either side. Denies problems with speech. Denies sensory loss, numbness , or tingling. Denies seizures. Patient normally is able to ambulate with a walker, but was unable to do this without significant assistance this evening. PSYCHIATRIC: Denies anxiety or stress. Denies depression, suicidal ideation, or homicidal ideation. ALL OTHER SYSTEMS REVIEWED AND NEGATIVE. Dictation was performed using [employer] voice recognition software Physical Exam - Vital signs Vitals: Temp Pulse Resp BP Pulse Ox 98.6 F 74 20 105/52 L 98 08/03/17 00:36 08/03/17 00:36 08/03/17 00:36 08/03/17 00:36 08/03/17 00:36 - Notes Notes: PHYSICAL EXAMINATION: GENERAL: Initially, slow to respond but in no obvious distress. HEAD: Atraumatic, normocephalic. EYES: Pupils equal round and reactive to light, extraocular movements intact, sclera anicteric, conjunctiva are normal. ENT: Nares patent, oropharynx clear without exudates. Dry mucous membranes. Poor dentition no obvious abscess NECK: Normal range of motion, supple without lymphadenopathy. No meningismus. LUNGS: Breath sounds clear to auscultation bilaterally and equal. No wheezes rales or rhonchi. HEART: Regular rate and rhythm without murmurs ABDOMEN: Soft, tender upper greater than lower abdomen right greater than left, nondistended abdomen. No guarding, no rebound. No masses appreciated. No obvious bladder distention. Musculoskeletal: Normal range of motion. No cyanosis. No CVA tenderness. 2+/3 + lower extremity edema. No bony tenderness. NEUROLOGICAL: Cranial nerves grossly intact. Normal speech, normal gait. Normal sensory, motor exams PSYCH: Normal mood, normal affect. SKIN: Warm, Dry. Skin tears old left lower extremity and numerous skin tears posterior aspect of the right lower extremity. None of these skin tears require suture repair and there is no obvious evidence for infection. Patient also has a small stage II decubitus right gluteal region about 1 cm diameter. Course - Re-evaluation Re-evalutation: 08/03/17 07:34 Patient was given Tylenol for fever and was given normal saline bolus. Patient' s blood pressure dropped down into the 70s systolic, although as the patient's fever improved he became more alert and interactive and was oriented and talking more like himself. The patient was given additional saline bolus and after the second liter of normal saline his blood pressure improved up to 92/63, with a repeat blood pressure 104/58. Patient did not require pressors. After blood cultures, the patient was given IV Rocephin for his urinary tract infection. Pt was given IV mag replacement. Discussion was undertaken with the hospitalist to advise patient may need an ICU bed which was not available at this facility. Discussion was undertaken with the patient and family and the patient's family was in agreement with the patient being transferred. It was confirmed that the patient was not a DNR, and the family requested all measures to be taken to support the patient medically. Discussion was undertaken with Dr. Aguero at [facility], and he accepted the patient in transfer. Oxygen saturations remained stable. There is no suggestion for abdominal aortic aneurysm or acute cholecystitis or diverticulitis. 08/03/17 07:36 08/03/17 07:37 - Vital Signs Vital signs: Temp Pulse Resp BP Pulse Ox 97.8 F 74 15 104/59 L 98 08/03/17 06:01 08/03/17 00:36 08/03/17 07:01 08/03/17 07:01 08/03/17 07:01 - Laboratory Result Diagrams: 08/03/17 02:30 08/03/17 02:30 Laboratory results interpreted by me: 08/03/17 08/03/17 08/03/17 02:30 02:30 03:25 WBC 23.9 H RBC 4.32 L Hgb 13.0 L RDW 15.2 H Band Neutrophils % 8 H Lymphocytes % (Manual) 11 L Abs Neuts (Manual) 19.1 H Abs Monocytes (Manual) 2.2 H Carbon Dioxide 18 L BUN 24 H Glucose 122 H Lactic Acid 3.8 H Calcium 10.3 H Magnesium 1.2 L* Direct Bilirubin 0.6 H Alkaline Phosphatase 162 H Urine Protein Urine Blood Ur Leukocyte Esterase 08/03/17 05:20 WBC RBC Hgb RDW Band Neutrophils % Lymphocytes % (Manual) Abs Neuts (Manual) Abs Monocytes (Manual) Carbon Dioxide BUN Glucose Lactic Acid Calcium Magnesium Direct Bilirubin Alkaline Phosphatase Urine Protein 30 H Urine Blood LARGE H Ur Leukocyte Esterase MODERATE H - EKG Interpretation by Me EKG shows normal: Sinus rhythm Additional EKG results interpreted by me: 08/03/17 04:20 EKG as interpreted by me showed sinus tachycardia heart rate of [address] segment abnormalities noted. There was no gross evidence for acute AR or ischemia appreciated. There was no significant change from previous EKG reviewed from 01/29/17. Critical Care Note - Critical Care Note Total time excluding time spent on procedures (mins): 57 Discharge - Discharge Clinical Impression: Skin tear, Hypomagnesemia, SIRS (systemic inflammatory response syndrome) Fever Qualifiers: Fever type: unspecified Qualified Code(s): R50.9 - Fever, unspecified Decubital ulcer Qualifiers: Pressure ulcer location: buttock Pressure ulcer stage: stage 2 Laterality: right Qualified Code(s): L89.312 - Pressure ulcer of right buttock, stage 2 Urinary tract infection Qualifiers: Urinary tract infection type: site unspecified Hematuria presence: with hematuria Qualified Code(s): N39.0 - Urinary tract infection, site not specified Hypotension Qualifiers: Hypotension type: unspecified hypotension type Qualified Code(s): I95.9 - Hypotension, unspecified Sepsis Qualifiers: Sepsis type: sepsis due to unspecified organism Qualified Code(s): A41.9 - Sepsis, unspecified organism Condition: Serious Disposition: [facility]
--- NOTE | 2017-08-03 04:36 | RADIOLOGY REPORT (SQ) ---
EXAM DESCRIPTION: CT ABD/PELVIS WITH IV ONLY COMPLETED DATE/TIME: 08/03/2017 4:16 am REASON FOR STUDY: RUQ pain, hx metastatic prostate cancer COMPARISON: CT abdomen and pelvis 07/13/2015, 05/05/2014. CT chest 07/13/2015. TECHNIQUE: CT scan of the abdomen and pelvis performed using helical scanning technique with dynamic intravenous contrast injection. No oral contrast. Images reviewed with lung, soft tissue, and bone windows. Reconstructed coronal and sagittal MPR images reviewed. Delayed images for evaluation of the urinary system also acquired. All images stored on PACS. All CT scanners at this facility use dose modulation, iterative reconstruction, and/or weight based d osing when appropriate to reduce radiation dose to as low as reasonably achievable (ALARA). [facility]: Dose Right [facility]: CareDose [facility]: Dose Right [facility]: Teradose 4D [facility]: [facility] CONTRAST TYPE AND DOSE: contrast/concentration: Isovue 370.00 mg/ml; Total Contrast Delivered: 58.0 ml; Total Saline Delivered: 65.0 ml RENAL FUNCTION: Creatinine 0.83 RADIATION DOSE: Up-to-date CT equipment and radiation dose reduction techniques were employed. CTDIv ol: 8.0 mGy. DLP: 876 mGy-cm.. LIMITATIONS: Motion artifact. Streak artifact from the patient's arms along the body FINDINGS: LOWER CHEST: No significant interval change in the subcentimeter right middle lobe nodules . Mild bibasilar atelectasis. LIVER: Normal size. No masses. No dilated ducts. SPLEEN: Surgically absent. Accessory splenules are noted in the left upper quadrant. PANCREAS: No significant calcifications. No adjacent inflammation or peripancreatic fluid collections . Pancreatic duct not dilated. GALLBLADDER: Present. ADRENAL GLANDS: No significant masses or asymmetry. RIGHT KIDNEY AND URETER: There is a 4.6 cm cyst. Nonobstructing 6 mm (607 Hounsfield units) calcifi cation at the right kidney. No hydronephrosis or hydroureter. LEFT KIDNEY AND URETER: Multiple nonobstructing renal calculi measuring up to 11 mm (543 Hounsfield u nits). No hydronephrosis or hydroureter. AORTA AND VESSELS: Atherosclerotic calcifications in the abdominal aorta and its branches. No abdomi nal aortic aneurysm. RETROPERITONEUM: No retroperitoneal hemorrhage or masses. BOWEL AND PERITONEAL CAVITY: The stomach is distended with oral contents. No dilated small bowel loo ps. Moderate amount of stool in the colon. No free fluid or free air. APPENDIX: Normal. PELVIS: The urinary bladder is partially distended. Coarse calcifications are seen at the prostate. No free fluid. ABDOMINAL WALL: No hernias. BONES: There is osteopenia. Redemonstration of sclerotic appearance of the right innominate bone and midline sacrum, and compression deformity with anterior wedging at L1. IMPRESSION: Bilateral nonobstructing nephrolithiasis. No hydronephrosis. Large amount of stool in the colon, please correlate for constipation. TECHNICAL DOCUMENTATION: JOB ID: [id number] OH-[id number] Quality ID # [id number]: Final reports with documentation of one or more dose reduction techniques (e.g., Au tomated exposure control, adjustment of the mA and/or kV according to patient size, use of iterative reconstruction technique) 2010 [employer]- All Rights Reserved
--- NOTE | 2017-08-03 04:38 | RADIOLOGY REPORT (SQ) ---
EXAM DESCRIPTION: CHEST SINGLE VIEW COMPLETED DATE/TIME: 08/03/2017 4:19 am REASON FOR STUDY: fever COMPARISON: Chest x-ray 01/26/2017. EXAM PARAMETERS: NUMBER OF VIEWS: One view. TECHNIQUE: Single frontal radiographic view of the chest acquired. RADIATION DOSE: NA LIMITATIONS: None. FINDINGS: LUNGS AND PLEURA: No consolidation, pneumothorax or pleural effusion. MEDIASTINUM AND HILAR STRUCTURES: No masses. Contour normal. HEART AND VASCULAR STRUCTURES: Heart normal in size. Normal vasculature. BONES: No acute findings. 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 IMPRESSION: No acute radiographic finding in the chest. TECHNICAL DOCUMENTATION: JOB ID: [id number] [id number]
[2017-08-03] MEDS ORDERED: CEFTRIAXONE INJ 1000 MG VIAL IV ONE (05:31)
[2017-08-03 05:51] LABS: APPEARANCE,URINE CLOUDY; BILIRUBIN,URINE NEGATIVE (NEGATIVE); GLUCOSE, URINE NEGATIVE (NEGATIVE); KETONES,URINE NEGATIVE (NEGATIVE); LEUKOCYTE ESTERASE,URINE MODERATE (NEGATIVE); NITRITE,URINE NEGATIVE (NEGATIVE); PROTEIN,URINE 30 mg/dL (NEGATIVE); URINE SPECIFIC GRAVITY 1.032; UROBILINOGEN,URINE NEGATIVE mg/dL (<2.0)
[2017-08-03 06:02] LABS: URINE BARBITURATES SCREEN NEGATIVE; URINE METHADONE SCREEN NEGATIVE; URINE OPIATES LOW UNCONFIRMED POSITIVE; URINE PHENCYCLIDINE SCREEN NEGATIVE
[2017-08-03] MEDS ORDERED: DEXTROSE 5%-WATER 250 ML with NOREPINEPHRINE BITARTRATE 4 MG IV PRN ×2 (08:16)
[2017-08-03] MEDS ORDERED: NOREPINEPHRINE BITARTRATE INJ/PF 4 MG/4 ML SDV IV ONE (08:30)
[2017-08-03 08:56] VITALS: BP 79/54
[2017-08-03] MEDS ORDERED: DIPHENHYDRAMINE HCL 50 MG/ML VIAL IV ONE (08:57)
--- NOTE | 2017-08-03 20:26 | EKG REPORT ---
SEVERITY:- BORDERLINE ECG - SINUS TACHYCARDIA MARKEDLY POSTERIOR QRS AXIS LOW VOLTAGE IN FRONTAL LEADS : Confirmed by: Radha Coley MD 03-Aug-2017 20:25:59
== END 2017-08-03 09:00 | disposition short-term general hospital (02) ==
LOC: ER 00:34
DX: E83.42 Hypomagnesemia (principal); I95.9 Hypotension, unspecified; A41.9 Sepsis, unspecified organism; R50.9 Fever, unspecified; L89.312 Pressure ulcer of right buttock, stage 2; R53.1 Weakness; S81.812A Laceration without foreign body, left lower leg, initial encounter; S81.811A Laceration without foreign body, right lower leg, initial encounter; V48.4XXA Person boarding or alighting a car injured in noncollision transport accident, initial encounter; C61 Malignant neoplasm of prostate; E78.00 Pure hypercholesterolemia, unspecified; I10 Essential (primary) hypertension; J44.9 Chronic obstructive pulmonary disease, unspecified; E11.9 Type 2 diabetes mellitus without complications; Z87.891 Personal history of nicotine dependence
CPT/HCPCS: 93005; 99291; 96361; 51702; 96375; 96365; 96367; 36415; 87040; 87086; 82962; 80307 ×2; 83690; 83735; 85025; 87077; 80053; 81001; 84484; 87186; 83605; 71010; 74177; 93010; J3490; J3475; J0696; J2405; J7060; J7030; A9270